=== PATIENT | female | born 2000 | race Caucasian/White ===

== ENCOUNTER 2024-08-17 12:49 | Inpatient (IN) | payer OTHER ==
[~2024-08-17 12:49] MED LIST: Bupivacaine 0.25% HCL 30 ML VIAL ONE
[2024-08-17] MEDS ORDERED: Diphenoxylate HCl/Atropine Tablet PO PRN (13:04)
[2024-08-17] MEDS ORDERED: Methylergonovine 0.2 MG/ML VIAL IM PRN (13:04)
[2024-08-17] MEDS ORDERED: Ondansetron PF 4 MG/2 ML Vial IVP PRN (13:04)
[2024-08-17] MEDS ORDERED: hydrALAZINE 20 MG/ML VIAL SLOW IVP PRN (13:04)
[2024-08-17] MEDS ORDERED: Tranexamic Acid 1,000 MG/10 ML VIAL IVP PRN (13:04)
[2024-08-17] MEDS ORDERED: Lidocaine 1% (PF) 30 ML VIAL SC PRN (13:04)
[2024-08-17] MEDS ORDERED: Carboprost 250 MCG/ML AMP IM PRN (13:04)
[2024-08-17] MEDS ORDERED: Misoprostol 200 MCG TAB PR PRN (13:04)
[2024-08-17] MEDS ORDERED: Acetaminophen 500 MG TAB PO PRN (13:04)
[2024-08-17] MEDS ORDERED: Promethazine HCl 25 MG/ML VIAL IM PRN (13:04)
[2024-08-17] MEDS ORDERED: Ibuprofen 800 MG TAB PO PRN (13:06)
[2024-08-17] MEDS ORDERED: HYDROcodone/Acetaminophen 5/325 mg Tablet PO PRN (13:06)
[2024-08-17] MEDS ORDERED: Oxytocin 30 units/NS 500 ML 500 ML IV SCH ×3 (13:15)
[2024-08-17 13:40] VITALS: BMI 33.6
[2024-08-17] MEDS: Lactated Ringer's 1,000 ML IV SCH (14:45)
[2024-08-17] MEDS: Penicillin G Potassium 5 MILL.UNITS in Sodium Chloride 0.9% 100 ML IVPB SCH (14:45)
[2024-08-17] MEDS: Misoprostol 100 MCG TAB VAG SCH (14:46)
[2024-08-17 15:05] LABS: Hematocrit 32.2 % (34.9-44.5); Hemoglobin 11.1 g/dL (12.0-15.5); Mean Corpuscular HGB CONC 34.5 g/dL (32.0-36.0); Mean Corpuscular Hemoglobin 29.4 pg (27.0-33.0); Mean Corpuscular Volume 85.2 fL (81.6-98.3); Mean Platelet Volume 11.5 fL (7.4-10.4); Platelet Count 252 10x3/uL (150-450); RBC Distribution Width 13.2 % (11.5-14.5); Red Blood Cell (RBC) Count 3.78 10x6/uL (3.90-5.03); White Blood Cell (WBC) Count 13.8 10x3/uL (3.5-10.5)
[2024-08-17 15:50] LABS: HBsAg Index 0.15 S/CO (0-0.99); Hep B Surf Ag - L&D Non-Reactive S/CO (NonReactive)
[2024-08-17 15:51] LABS: Syphilis Antibody Nonreactive (Nonreactive); Syphilis Antibody Index 0.04 S/CO (<1.00 Non-Reactive)
[2024-08-17] MEDS: Penicillin G Potassium 5 MILL.UNITS VIAL ONE (17:54)
[2024-08-17 18:04] LABS: Amphetamine Not Detected (NotDetected); Barbiturates Screen Not Detected (NotDetected); Benzodiazepine Screen Not Detected (NotDetected); Cocaine Metabolite Screen Not Detected (NotDetected); Methadone Not Detected (NotDetected); Methamphetamine Not Detected (NotDetected); Opiate Screen Not Detected (NotDetected); Oxycodone Screen Not Detected (NotDetected); Phencyclidine (PCP) Not Detected (NotDetected); THC/Cannabinoid Screen Detected (NotDetected); Tricyclic Screen Not Detected (NotDetected)
[2024-08-17] MEDS: Penicillin G 2.5 MILL.units 2.5 MILL.UNITS in Premix 1 BAG IVPB SCH (19:55)
[2024-08-17] MEDS: fentaNYL 50 mcg/mL 1 mL Vial SLOW IVP PRN (21:16)
[2024-08-18] MEDS: fentaNYL/Ropivacaine Epidural 100 ML ONE (00:10)
[2024-08-18] MEDS ORDERED: Lactated Ringer's 500 ML IV PRN (00:32)
[2024-08-18] MEDS ORDERED: Ondansetron PF 4 MG/2 ML Vial IVP PRN ×2 (00:32→07:01)
[2024-08-18] MEDS ORDERED: diphenhydrAMINE 50 MG/ML VIAL IVP PRN (00:32)
[2024-08-18] MEDS ORDERED: Promethazine HCl 25 MG/ML VIAL IM PRN ×2 (00:32→07:01)
[2024-08-18] MEDS ORDERED: Moisturizing Cream (Eucerin) 113 GM JAR TOP PRN (00:32)
[2024-08-18] MEDS ORDERED: ePHEDrine Sulfate 50 MG/10 ML VIAL SLOW IVP PRN (00:32)
[2024-08-18] MEDS ORDERED: Naloxone HCl 0.4 mg/ml Vial IVP PRN ×2 (00:32)
[2024-08-18] MEDS ORDERED: Acetaminophen 325 MG TAB PO PRN (00:32)
[2024-08-18] MEDS ORDERED: fentaNYL 2 mcg/Ropivacaine 0.2% Epidural 100 ML CADD EPIDURAL SCH (00:45)
[2024-08-18] MEDS ORDERED: Communication Order-Pharmacy FS SCH (00:45)
[2024-08-18] MEDS ORDERED: Lanolin Ointment 7 GM TUBE TOP PRN (07:01)
[2024-08-18] MEDS ORDERED: Milk Of Magnesia 30 ML UDCUP PO PRN (07:01)
[2024-08-18] MEDS ORDERED: hydrALAZINE 20 MG/ML VIAL SLOW IVP PRN (07:01)
[2024-08-18] MEDS ORDERED: Bisacodyl 10 MG SUPP PR PRN (07:01)
[2024-08-18] MEDS ORDERED: Benzocaine-Menthol 82.5 ML CAN TOP PRN (07:01)
[2024-08-18] MEDS ORDERED: diphenhydrAMINE 25 MG CAP PO PRN (07:01)
[2024-08-18] MEDS ORDERED: Boostrix 0.5 ML (Tdap) VIAL (>/=7 yrs of age) IM ONE (07:01)
[2024-08-18] MEDS: Ibuprofen 800 MG TAB PO SCH ×2 (08:17→21:30)
[2024-08-18] MEDS: Ferrous Sulfate 325 MG TAB PO SCH (08:18)
[2024-08-18] MEDS: Docusate 100 MG CAP PO SCH (08:18)
[2024-08-18] MEDS: Prenatal Vitamin 1 TAB PO SCH (08:18)
[2024-08-18] MEDS: HYDROcodone/Acetaminophen 5/325 mg Tablet PO PRN (16:08)
[2024-08-18] MEDS: Witch Hazel 100 PAD JAR TOP PRN (16:09)
[2024-08-19 08:12] VITALS: BP 102/56; TEMP 97.8
== END 2024-08-19 14:20 | disposition home or self-care (01) | DRG 807 ==
LOC: CSHLD 12:49 → CSHPP 08-18 06:15
PROVIDERS: ADMIT Family Medicine; ATTEND Family Medicine
PROC: 10E0XZZ Delivery of Products of Conception, External Approach (ICD-10-PCS; principal; 2024-08-18)
DX: O99.824 Streptococcus B carrier state complicating childbirth (principal); Z37.0 Single live birth; Z3A.40 40 weeks gestation of pregnancy; O48.0 Post-term pregnancy
CPT/HCPCS: 36415; 51702; 80306; 85027; 85461; 86780; 86850; 86900; 86901; 87340; 90384; 96372; J0665; J2540; J3010; J7120